=== PATIENT | male | born 1950 | race Caucasian/White ===

== ENCOUNTER → 2017-12-31 | Outpatient (CLI) | payer MEDICARE ==
--- NOTE | 2017-12-31 23:00 | CTL ---
EXAMINATION TYPE: CT Low Dose Lung DATE OF EXAM ORDERED: 12/31/2017 HISTORY: 67-year-old male personal history of tobacco use. Lung cancer screening CT DLP: 79.[address] CTDI: 2.2 mGy Automated exposure control for dose reduction was used. SCREENING VISIT: Baseline COMPARISON: None TECHNIQUE: Low dose computed tomography scan was performed through the chest at 1 mm thick sections a nd reconstructed images in the coronal/sagittal plane at [address] DIAGNOSTIC QUALITY: Satisfactory FINDINGS: Heart is normal size without pericardial effusion. Coronary vessel calcifications are present in the remarkable for coronary artery disease. Mild aneurysm ascending aorta 4.1 cm. There is conventional arterial vessel branching anatomy. Scattered nonenlarged mediastinal lymph nodes. Some are borderline in size which is in the AP window measuring 1 cm. There is moderate centrilobular emphysema in the upper to mid lung with some strandy atelectasis in t he right middle lobe. No consolidation or pleural effusion. Right apical pleural-parenchymal scarring . - No suspicious pulmonary nodule or mass. Visualized upper abdomen shows no gross abnormality. Bones: Anterior endplate spondylosis mid to lower thoracic spine. IMPRESSION: 1. LungRADS 1 - negative; no suspicious pulmonary nodule or mass. 2. COPD with moderate emphysema. 3. Mild aneurysm ascending aorta (4.1 cm). RECOMMENDATION: 1. Continue annual LDCT lung cancer screening. 2. Smoking cessation. 3. Appropriate follow-up for the patient's mild ascending aortic aneurysm. FOLLOW UP CT CHEST RECOMMENDATION: [address] LUNG RAD: Lung-Rad 1 Negative
== END | disposition home or self-care (01) ==
LOC: RADCTMAIN 16:26
PROVIDERS: ATTEND Family Medicine
DX: Z12.2 Encounter for screening for malignant neoplasm of respiratory organs (principal); J43.9 Emphysema, unspecified; I71.9 Aortic aneurysm of unspecified site, without rupture; Z87.891 Personal history of nicotine dependence

== ENCOUNTER 2018-01-21 08:32 | Day surgery (SDC) | payer MEDICARE ==
[2018-01-17 12:15] VITALS: BMI 28.1
[~2018-01-21 08:32] MED LIST: LACTATED RINGERS 1,000 ML IV SCH; LIDOCAINE 1% 20 ML VIAL (10MG/ML) FOR IV START INTRADERMA PRN; MIDAZOLAM 2 MG/2 ML VIAL IV PRN
[2018-01-21 08:51] VITALS: RESP 16; TEMP 97.9
[2018-01-21] MEDS ORDERED: PROPOFOL 10 MG/ML 20 ML VIAL IV ONE (09:15)
--- NOTE | 2018-01-21 09:45 | P.PCN ---
Date of Procedure: 01/21/18 Procedure(s) Performed: Procedure: Colonoscopy and polypectomy. Preoperative diagnosis: Screening for neoplasia. Postoperative diagnosis: 1. Diverticulosis with no evidence of acute diverticulitis or strictures. 2. Sigmoid and rectal polyps snared but no large polyps or cancer. Preparation: HalfLytely prep. Sedation: Was provided by anesthesia. Brief clinical history: The patient is a 67-year-old male who is scheduled for this evaluation for screening for neoplasia age being his risk factor. No family history of colon cancer. His prior exam was around age 51. The patient has no abdominal complaints, bleeding or anemia. Procedure: With the patient on his left lateral decubitus position and after informed consent and adequate sedation, the perianal area was inspected and it did not show any fissures or fistulas. He were no masses felt on digital rectal examination. The Olympus CFQ 160L video colonoscope was then inserted in the rectum in the usual fashion and advanced to the cecum. There were multiple diverticular orifices seen scattered along the length of the bowel including the right colon and around the hepatic flexure but there was no evidence of acute diverticulitis or strictures. In the distal sigmoid there were 2 polyps measuring between 1 and 2 cm each which were snared and retrieved by suction and there was another 1.5 cm polyp in the rectum which was snared and retrieved by suction but there were no large polyps or cancer. I retroflexed the endoscope in the rectum before the endoscope was withdrawn. The patient tolerated the procedure well. Plan: The patient was reassured. Discussed dietary measures. I recommended repeat exam in 3-5 years. He will follow up with you as planned.
[2018-01-21 10:15] VITALS: BP 111/81; PULSE 54
== END 2018-01-21 10:31 | disposition home or self-care (01) ==
LOC: ORWHC2ENDO 08:32
DX: Z12.11 Encounter for screening for malignant neoplasm of colon (principal); K63.5 Polyp of colon; D12.8 Benign neoplasm of rectum; K57.30 Diverticulosis of large intestine without perforation or abscess without bleeding; J44.9 Chronic obstructive pulmonary disease, unspecified; G47.33 Obstructive sleep apnea (adult) (pediatric); E78.5 Hyperlipidemia, unspecified; I25.10 Atherosclerotic heart disease of native coronary artery without angina pectoris; I25.2 Old myocardial infarction; Z95.5 Presence of coronary angioplasty implant and graft
CPT/HCPCS: 45385; J2704; 88305

== ENCOUNTER → 2018-06-27 | Outpatient (CLI) | payer MEDICARE ==
--- NOTE | 2018-06-27 15:55 | CT ---
EXAMINATION TYPE: CT abdomen pelvis w con DATE OF EXAM: 06/27/2018 COMPARISON: None HISTORY: Left lower quadrant abdominal pain. CT DLP: 914.2 mGycm CONTRAST: CT scan of the abdomen and pelvis is performed with Oral Contrast and with IV Contrast, patient injec freddie with 100ml mL of Isovue 300. FINDINGS: LUNG BASES-: No visible nodule. No infiltrate. LIVER/GB: No calcified gallstones. No space occupying hepatic lesion. Biliary tree is of normal ca liber. PANCREAS: No inflammation. No distinct mass. SPLEEN: No splenic enlargement. No lesion seen. ADRENALS: No nodule. No thickening. KIDNEYS/BLADDER: No hydronephrosis. No nephrolithiasis. No distinct renal mass. Urinary bladder g rossly unremarkable. BOWEL: Extensive wall thickening with pericolonic inflammatory change and fluid at the descending col onic/sigmoid colonic junction extending into the proximal sigmoid colon. Inflamed diverticula noted. Findings are compatible with acute diverticulitis without abscess formation or perforation at this ti me. Remaining small and large bowel are of normal caliber. GENITAL ORGANS: No gross abnormality. LYMPH NODES: No greater than 1cm abdominal or pelvic lymph nodes are appreciated. AORTA: No significant abnormality. OSSEOUS STRUCTURES: No significant abnormality is seen. OTHER: No significant additional abnormality is seen. IMPRESSION: 1. Acute diverticulitis without evidence for perforation or abscess at this time involving the descen ding colonic/sigmoid colonic junction and proximal sigmoid colon.
== END | disposition home or self-care (01) ==
LOC: RADCTMAIN 13:39
PROVIDERS: ATTEND Family Medicine
DX: K57.92 Diverticulitis of intestine, part unspecified, without perforation or abscess without bleeding (principal)
CPT/HCPCS: 82565; 84520; 74177; 36415; Q9967

== ENCOUNTER → 2018-12-31 | Outpatient (CLI) | payer MEDICARE ==
--- NOTE | 2018-12-31 12:32 | CTL ---
EXAMINATION TYPE: CT Low Dose Lung DATE OF EXAM ORDERED: 12/31/2018 COMPARISON: 12/31/2017 HISTORY: . Low Dose CT Lung Screening CT DLP: 103.[address] CTDI: 2.8 mGy IV CONTRAST USED: None. SCREENING VISIT: First visit COMPARISON: None. TECHNIQUE: Low dose computed tomography scan was performed through the chest at 1 millimeter thick se ctions and reconstructed images in the coronal plane at [address] DIAGNOSTIC QUALITY: Satisfactory FINDINGS: LUNG NODULES: Not presentLeft lung: no nodules identified.Right lung: no nodules identified. LUNGS: COPD: Severity: Moderate Fibrosis: Severity:None Lymph nodes: None Other findings: None RIGHT PLEURAL SPACE: Effusion: None Calcification: None Thickening: None Pneumothorax: None LEFT PLEURAL SPACE: Effusion: None Calcification: None Thickening: None Pneumothorax: None HEART: Heart Size: Mildly enlarged Coronary calcification: Mild Pericardial effusion: None Stable mild ascending aortic aneurysm at 4.1 cm versus 4.1 cm previously. OTHER FINDINGS: Upper abdomen: No significant abnormality Bony thorax: Degenerative changes Supraclavicular region: No significant abnormalityOther: No significant abnormalityI IMPRESSION: 1. No evidence for pulmonary nodule. 2. Mild ascending thoracic aortic aneurysm is stable. FOLLOW UP CT CHEST RECOMMENDATION: Follow-up screening in one year. Smoking cessation recommended.. CT LUNG RAD: LUNG RAD CATEGORY 1 negative
== END | disposition home or self-care (01) ==
LOC: RADCTMAIN 08:08
PROVIDERS: ATTEND Family Medicine
DX: Z12.2 Encounter for screening for malignant neoplasm of respiratory organs (principal); F17.210 Nicotine dependence, cigarettes, uncomplicated

== ENCOUNTER → 2019-12-28 | Outpatient (CLI) | payer MEDICARE ==
[2019-12-28 13:15] LABS: African American GFR (CKD) >90 (>60 ml/min/1.73 sqM); Blood Urea Nitrogen 19 mg/dL (9-20); Non-African American GFR(CKD) 81 (>60 ml/min/1.73 sqM)
--- NOTE | 2019-12-28 15:22 | CT ---
EXAMINATION TYPE: CT angio abd aorta w/Runoff DATE OF EXAM: 12/28/2019 COMPARISON: CT abdomen and pelvis 06/27/2018 HISTORY: 69-year-old male AAA TECHNIQUE: Contiguous axial scanning of the abdomen and pelvis with bilateral lower extremity runoff performed with IV Contrast, patient injected with 125 mL of Isovue 370. Coronal/sagittal MIP reconstr uctions performed. 3-D reconstructions generated on a dedicated independent workstation. CT DLP: 1808 mGycm Automated exposure control for dose reduction was used. FINDINGS: Heart normal size without pericardial effusion. RCA coronary artery calcifications are present. Mild LAD calcifications. Moderate centrilobular emphysema. No consolidation or pleural effusion within the visualized lungs. Tiny hiatal hernia. No focal liver lesion allowing for arterial phase imaging. No biliary ductal dilatation. Gallbladder, adrenal glands, right kidney, spleen, and pancreas appear within normal limits. Cortical hypodensities within the left kidney measuring up to 1.2 cm appear unchanged from 06/27/2018 suggesting cortical cysts. No dilated small bowel, free fluid, or free air. No mesenteric or retroperitoneal lymphadenopathy. No rmal appendix. Mild stool burden. Left-sided colonic diverticulosis, most extensive within the sigmoi d colon. There is some circumferential thickening throughout the sigmoid colon and rectum probably re lating to chronic diverticulitis. No mesenteric or retroperitoneal lymphadenopathy. Mild circumferential bladder wall thickening probably chronic bladder wall hypertrophy given mild pro statomegaly of 4.6 cm. No abnormal fluid collection the pelvis or pelvic lymphadenopathy. Bones: Mild degenerative changes at the hips. Facet arthropathy lower lumbar spine. Stable sclerotic focus left sacroiliac ingesting a bone island. DISH within the lower thoracic spine. VASCULATURE: Aortic root measured ectatic at 3.5 cm. Ascending thoracic aorta ectatic at 3.8 cm. Conventional arch vessel branching anatomy. Descending thoracic aorta is normal caliber. The celiac axis, SMA, bilateral hare renal arteries, and DARRYL are patent. Mild atherosclerotic calcifications infrarenal abdominal aorta and iliac arteries. No abdominal aortic aneurysm. RIGHT: Mild atherosclerotic change within the common iliac artery. [employer], SFA, and profunda femoral artery are patent. Popliteal artery and trifurcation are patent. Peroneal artery becomes diminutive at the distal leg. Anterior tibial artery becomes diminutive at the middle third leg and is not clearly seen beyond the ankle, likely due to the timing of the scan. Satisfactory runoff via the posterior tibial artery. LEFT: Mild atherosclerotic calcifications, iliac artery. Mild atherosclerotic calcification [employer]. SFA and profunda femoral artery are patent. Popliteal artery is patent as is the trifurcation. Peroneal and anterior tibial arteries become diminutive at the distal leg. Anterior tibial artery not clearly seen beyond the hindfoot. Peroneal artery seen to just beyond the ankle. Satisfactory runoff via the posterior tibial artery. IMPRESSION: 1. NO ABDOMINAL AORTIC ANEURYSM OR POPLITEAL ARTERY ANEURYSM. NO SIGNIFICANT ARTERIAL STENOSIS IDENTI FIED. 2. ECTASIA OF THE ASCENDING AORTA AT 3.8 CM INCIDENTALLY NOTED. 3. SATISFACTORY RUNOFF VIA THE POSTERIOR TIBIAL ARTERIES. THE ANTERIOR TIBIAL AND PERONEAL ARTERIES B ECOME DIMINUTIVE AT THE DISTAL LEGS LIKELY DUE TO SCAN TIMING RATHER THAN LACK OF PERFUSION TO THE DI STAL LOWER EXTREMITIES. 4. COPD AND TINY HIATAL HERNIA. 5. THERE IS LEFT-SIDED DIVERTICULOSIS, EXTENSIVE IN THE SIGMOID COLON. SOME CIRCUMFERENTIAL WALL THIC KENING OF THE SIGMOID COLON AND RECTUM PROBABLY RELATED TO CHRONIC DIVERTICULITIS. DIRECT VISUALIZATI ON RECOMMENDED IF ROUTINE SCREENING COLONOSCOPY IS NOT BEING PERFORMED.
== END | disposition home or self-care (01) ==
LOC: RADCTMAIN 12:37
PROVIDERS: ATTEND Internal Medicine Interventional Cardiology
DX: J44.9 Chronic obstructive pulmonary disease, unspecified (principal); I71.4 Abdominal aortic aneurysm, without rupture; K57.30 Diverticulosis of large intestine without perforation or abscess without bleeding; K44.9 Diaphragmatic hernia without obstruction or gangrene; K63.89 Other specified diseases of intestine
CPT/HCPCS: 82565; 84520; 75635; 36415; Q9967

== ENCOUNTER 2021-03-22 13:58 | Emergency (ER) | payer MEDICARE ==
[2021-03-22 16:08] LABS: Basophils # (A) 0.2 k/uL (0-0.2); Basophils % (A) 2 %; Eosinophils # (A) 0.3 k/uL (0-0.7); Eosinophils % (A) 3 %; HCT 42.5 % (39.0-53.0); HGB 14.5 gm/dL (13.0-17.5); Lymphocytes # (A) 2.7 k/uL (1.0-4.8); Lymphocytes % (A) 31 %; MCH 31.9 pg (25.0-35.0); MCHC 34.1 g/dL (31.0-37.0); MCV 93.5 fL (80.0-100.0); Mean Platelet Volume 8.3; Monocytes # (A) 0.4 k/uL (0-1.0); Monocytes % (A) 5 %; Neutrophils % (A) 58 %; Platelet Count 214 k/uL (150-450); RBC 4.54 m/uL (4.30-5.90); WBC 8.7 k/uL (3.8-10.6)
[2021-03-22 16:17] LABS: ALT 20 U/L (4-49); AST 24 U/L (17-59); African American GFR (CKD) >90 (>60 ml/min/1.73 sqM); Albumin 4.6 g/dL (3.5-5.0); Alkaline Phosphatase 103 U/L (38-126); Anion Gap 10 mmol/L; Blood Urea Nitrogen 14 mg/dL (9-20); Calcium 9.7 mg/dL (8.4-10.2); Carbon Dioxide 25 mmol/L (22-30); Chloride 104 mmol/L (98-107); Glucose 118 mg/dL (74-99); Non-African American GFR(CKD) 89 (>60 ml/min/1.73 sqM); Sodium 139 mmol/L (137-145); Total Bilirubin 0.9 mg/dL (0.2-1.3); Total Protein 7.3 g/dL (6.3-8.2)
[2021-03-22 16:19] LABS: Partial Thromboplastin Time 24.9 sec (22.0-30.0); Prothrombin Time 10.4 sec (9.0-12.0)
--- NOTE | 2021-03-22 18:15 | ED ---
General Adult HPI - General Chief complaint: Recheck/Abnormal Lab/Rx Stated complaint: R arm numbness Time Seen by Provider: 03/22/21 17:50 Source: patient, RN notes reviewed, old records reviewed Mode of arrival: ambulatory Limitations: no limitations - History of Present Illness Initial comments: This is a 70-year-old male who presents emergency Department having a little bit of tingling in his right hand. Patient states he thinks it started after he carried for greater from upstairs ounces with his friend and today it was ongoing for about an hour and then resolved he has no other symptoms. Patient denies chest pain difficulty breathing first breath. Patient denies any diaphoretic episodes and patient education recent fever chills or cough per patient's any neck pain or neck injury recently. Patient states the main reason he came to the hospital because his made him because he had a heart attack a few years back and she became worried. Patient states she's currently at his baseline and has no complaints. - Related Data Home Medications Medication Instructions Recorded Confirmed Aspirin [Adult Low Dose Aspirin EC] 81 mg PO HS 01/17/18 01/17/18 Atorvastatin [Lipitor] 40 mg PO HS 01/17/18 01/17/18 Losartan [Cozaar] 12.5 mg PO HS 01/17/18 01/17/18 Prevagen 1 cap PO DAILY 01/17/18 01/21/18 Allergies Allergy/AdvReac Type Severity Reaction Status Date / Time No Known Allergies Allergy Verified 03/22/21 15:19 Review of Systems ROS Statement: Those systems with pertinent positive or pertinent negative responses have been documented in the HPI. ROS Other: All systems not noted in ROS Statement are negative. Past Medical History Past Medical History: Coronary Artery Disease (CAD), COPD, Hyperlipidemia, Myocardial Infarction ([place]), Skin Disorder, Sleep Apnea/CPAP/BIPAP Additional Past Medical History / Comment(s): PRE-CA FACE LESIONS. NO TX FOR SLEEP APNEA, BORDERLINE. Last Myocardial Infarction Date:: 09/2013 History of Any Multi-Drug Resistant Organisms: None Reported Past Surgical History: Heart Catheterization With Stent Additional Past Surgical History / Comment(s): PTCA W/ STENTS X2. COLONOSCOPY. Past Anesthesia/Blood Transfusion Reactions: No Reported Reaction Date of Last Stent Placement:: 09/2013 Past Psychological History: No Psychological Hx Reported Smoking Status: Never smoker Past Alcohol Use History: Occasional Past Drug Use History: None Reported - Past Family History Mother Family Medical History: No Reported History General Exam - General Exam Comments Initial Comments: GENERAL: Patient is well-developed and well-nourished. Patient is nontoxic and well- hydrated and is in no acute distress. ENT: Neck is soft and supple. No significant lymphadenopathy is noted. Oropharynx is clear. Moist mucous membranes. Neck has full range of motion without eliciting any pain. EYES: The sclera were anicteric and conjunctiva were pink and moist. Extraocular movements were intact and pupils were equal round and reactive to light. Eyelids were unremarkable. PULMONARY: Unlabored respirations. Good breath sounds bilaterally. No audible rales rhonchi or wheezing was noted. CARDIOVASCULAR: There is a regular rate and rhythm without any murmurs gallops or rubs. ABDOMEN: Soft and nontender with normal bowel sounds. SKIN: Skin is clear with no lesions or rashes and otherwise unremarkable. NEUROLOGIC: Patient is alert and oriented x3. Cranial nerves II through XII are grossly intact. Motor and sensory are also intact. Normal speech, volume and content. Symmetrical smile. MUSCULOSKELETAL: Normal extremities with adequate strength and full range of motion. LYMPHATICS: No significant lymphadenopathy is noted PSYCHIATRIC: Normal psychiatric evaluation. Limitations: no limitations Course Vital Signs 03/22/21 03/22/21 15:19 18:23 Temperature 97.8 F 98.0 F Pulse Rate 51 L 60 Respiratory 20 18 Rate Blood Pressure 123/78 124/76 O2 Sat by Pulse 98 98 Oximetry Medical Decision Making - Medical Decision Making EKG shows sinus bradycardia at 49 bpm VA interval is 172 QRS is 98 QT interval 434 QTC is 392. Patient's EKG showselevation or depression. Patient states he is always had a very slow heartbeat. - Lab Data Result diagrams: 03/22/21 15:58 03/22/21 15:58 Lab Results 03/22/21 03/22/21 03/22/21 Range/Units 15:58 15:58 15:58 WBC 8.7 (3.8-10.6) k/uL RBC 4.54 (4.30-5.90) m/uL Hgb 14.5 (13.0-17.5) gm/dL Hct 42.5 (39.0-53.0) % MCV 93.5 (80.0-100.0) fL MCH 31.9 (25.0-35.0) pg MCHC 34.1 (31.0-37.0) g/dL RDW 12.0 (11.5-15.5) % Plt Count 214 (150-450) k/uL MPV 8.3 Neutrophils % 58 % Lymphocytes % 31 % Monocytes % 5 % Eosinophils % 3 % Basophils % 2 % Neutrophils # 5.0 (1.3-7.7) k/uL Lymphocytes # 2.7 (1.0-4.8) k/uL Monocytes # 0.4 (0-1.0) k/uL Eosinophils # 0.3 (0-0.7) k/uL Basophils # 0.2 (0-0.2) k/uL PT 10.4 (9.0-12.0) sec INR 1.0 (<1.2) APTT 24.9 (22.0-30.0) sec Sodium 139 (137-145) mmol/L Potassium 4.0 (3.5-5.1) mmol/L Chloride 104 (98-107) mmol/L Carbon Dioxide 25 (22-30) mmol/L Anion Gap 10 mmol/L BUN 14 (9-20) mg/dL Creatinine 0.86 (0.66-1.25) mg/dL Est GFR (CKD-EPI)AfAm >90 (>60 ml/min/1.73 sqM) Est GFR (CKD-EPI)NonAf 89 (>60 ml/min/1.73 sqM) Glucose 118 H (74-99) mg/dL Calcium 9.7 (8.4-10.2) mg/dL Total Bilirubin 0.9 (0.2-1.3) mg/dL AST 24 (17-59) U/L ALT 20 (4-49) U/L Alkaline Phosphatase 103 (38-126) U/L Troponin I (0.000-0.034) ng/mL Total Protein 7.3 (6.3-8.2) g/dL Albumin 4.6 (3.5-5.0) g/dL 03/22/21 Range/Units 15:58 WBC (3.8-10.6) k/uL RBC (4.30-5.90) m/uL Hgb (13.0-17.5) gm/dL Hct (39.0-53.0) % MCV (80.0-100.0) fL MCH (25.0-35.0) pg MCHC (31.0-37.0) g/dL RDW (11.5-15.5) % Plt Count (150-450) k/uL MPV Neutrophils % % Lymphocytes % % Monocytes % % Eosinophils % % Basophils % % Neutrophils # (1.3-7.7) k/uL Lymphocytes # (1.0-4.8) k/uL Monocytes # (0-1.0) k/uL Eosinophils # (0-0.7) k/uL Basophils # (0-0.2) k/uL PT (9.0-12.0) sec INR (<1.2) APTT (22.0-30.0) sec Sodium (137-145) mmol/L Potassium (3.5-5.1) mmol/L Chloride (98-107) mmol/L Carbon Dioxide (22-30) mmol/L Anion Gap mmol/L BUN (9-20) mg/dL Creatinine (0.66-1.25) mg/dL Est GFR (CKD-EPI)AfAm (>60 ml/min/1.73 sqM) Est GFR (CKD-EPI)NonAf (>60 ml/min/1.73 sqM) Glucose (74-99) mg/dL Calcium (8.4-10.2) mg/dL Total Bilirubin (0.2-1.3) mg/dL AST (17-59) U/L ALT (4-49) U/L Alkaline Phosphatase (38-126) U/L Troponin I <0.012 (0.000-0.034) ng/mL Total Protein (6.3-8.2) g/dL Albumin (3.5-5.0) g/dL Disposition Clinical Impression: Paresthesias in right hand Disposition: HOME SELF-CARE Condition: Good Instructions (If sedation given, give patient instructions): Paresthesia (ED) Is patient prescribed a controlled substance at d/c from ED?: No Referrals: Ambar Walker III, MD [Primary Care Provider] - 1-2 days Time of Disposition: 18:13
[2021-03-22 18:30] VITALS: BP 124/76; PULSE 60; RESP 18; TEMP 98
== END 2021-03-22 18:23 | disposition home or self-care (01) ==
LOC: EC 13:58
DX: R20.2 Paresthesia of skin (principal); R20.0 Anesthesia of skin; J44.9 Chronic obstructive pulmonary disease, unspecified; E78.5 Hyperlipidemia, unspecified; I25.2 Old myocardial infarction; I25.10 Atherosclerotic heart disease of native coronary artery without angina pectoris; G47.30 Sleep apnea, unspecified; Z79.82 Long term (current) use of aspirin
CPT/HCPCS: 36415; 80053; 84484; 85025; 85610; 85730; 93005; 99284

== ENCOUNTER 2022-04-03 06:56 | Day surgery (SDC) | payer MEDICARE ==
[2022-04-02 10:47] VITALS: BMI 29.7
[~2022-04-03 06:56] MED LIST changes: +LIDOCAINE 1% (10MG/ML) FOR IV START INTRADERMA PRN; -LIDOCAINE 1% 20 ML VIAL (10MG/ML) FOR IV START INTRADERMA PRN; -MIDAZOLAM 2 MG/2 ML VIAL IV PRN
[2022-04-03 07:30] VITALS: RESP 16; TEMP 97
[2022-04-03] MEDS ORDERED: PROPOFOL 10 MG/ML 20 ML VIAL IV ONE (08:20)
--- NOTE | 2022-04-03 08:46 | P.PCN ---
Date of Procedure: 04/03/22 Procedure(s) Performed: BRIEF HISTORY: Patient is a 71-year-old pleasant white male scheduled for an elective colonoscopy as a part of evaluation of intermittent rectal bleeding. PROCEDURE PERFORMED: Colonoscopy snare polypectomy. PREOPERATIVE DIAGNOSIS: Intermittent rectal bleeding. IV sedation per Anesthesia. PROCEDURE: After informed consent was obtained, the patient, was brought into the endoscopy unit. IV sedation was administered by Anesthesia under continuous monitoring. Digital rectal examination was normal. Initially the Olympus CF-160 flexible video colonoscope was then inserted in the rectum, gradually advanced into the cecum without any difficulty. Careful examination was performed as the scope was gradually being withdrawn. Ileocecal valve and the appendiceal orifice were visualized and appeared normal. Prep was excellent. Mucosa of the cecum had a 5 mm polyp that was removed by snare polypectomy. Rest of the ascending colon, transverse colon, descending colon, sigmoid colon, and rectum appeared normal. Scattered sigmoid diverticulosis. Retroflexion was performed in the rectum and small internal hemorrhoids were seen. The patient tolerated the procedure well. IMPRESSION: 5 mm cecal polyp status post polypectomy Scattered sigmoid diverticulosis and small internal hemorrhoids RECOMMENDATIONS: Findings of this examination were discussed with the patientas well as his family. He was advised to follow with the biopsy results. If the biopsy results adenoma he can have a repeat colonoscopy in 5 years. In the meantime he was advised to be a high-fiber diet and take fiber supplements a regular basis and avoid straining and constipation.].
[2022-04-03 09:23] VITALS: BP 147/74; PULSE 40
== END 2022-04-03 09:44 | disposition home or self-care (01) ==
LOC: ORWHC2ENDO 06:56
PROVIDERS: ATTEND Internal Medicine Gastroenterology
DX: D12.0 Benign neoplasm of cecum (principal); K62.5 Hemorrhage of anus and rectum; I10 Essential (primary) hypertension; G47.33 Obstructive sleep apnea (adult) (pediatric); E78.5 Hyperlipidemia, unspecified; J44.9 Chronic obstructive pulmonary disease, unspecified
CPT/HCPCS: 88305; 45385; J2704

== ENCOUNTER → 2022-04-04 | Outpatient (CLI) | payer MEDICARE ==
[2022-04-04 23:37] LABS: T4, Free (Free Thyroxine) 1.19 ng/dL (0.800-1.800)
== END | disposition home or self-care (01) ==
LOC: LABWHC1 14:23
PROVIDERS: ATTEND Internal Medicine Interventional Cardiology
DX: R00.1 Bradycardia, unspecified (principal)
CPT/HCPCS: 36415; 84439; 84443

== ENCOUNTER → 2024-06-22 | Outpatient (CLI) | payer MEDICARE ==
--- NOTE | 2024-06-23 07:37 | MR ---
EXAMINATION TYPE: MR Prostate wo/w con DATE OF EXAM: 06/22/2024 9:22 AM COMPARISON: None. CLINICAL INDICATION: Male, 73 years old with history of C61 prostate ca; PROSTATE CA - PSA 5.61 12/09/2 PSA 7.92 06/14/23 TECHNIQUE: Multi-planar, multi-sequence imaging of the pelvis is performed prior to and following the uncomplicated administration of bolus intravenous gadolinium. IV Contrast: 9ML mL Gadobutrol Interpretive Criteria: PI-RADS v2.1 SERUM PSA: PSA 5.61 12/09/2 PSA 7.92 06/14/23 SURGICAL PATHOLOGY: No data available. FINDINGS: Prostatic dimensions: 4.8 x 6.4 x 4.2 cm. Ellipsoid Volume:67.56 (PSA density=0.12 ng/mL/mL) CENTRAL GLAND (Central and Transition Zones/CZ+TZ): Multiple bilateral, heterogenous appearing hypertrophic stromal nodules, without suspicious lesion. M edian lobe hypertrophy with protrusion into the base of the bladder. (PI-RADS 2) PERIPHERAL ZONE (PZ): Limited right posterior lateral peripheral gland due to gas in the rectum. Bilateral linear, indistinct wedgelike areas of low ADC, and low T2 signal, No evidence of masslike a bnormality, or localized perfusional hypervascularity, to further suggest a focus of clinically signi ficant prostate cancer. (PI-RADS 2) SEMINAL VESICLES (SV): Symmetric and unremarkable. PERIPROSTATIC TISSUES: Unremarkable. LYMPH NODES: No enlarged pelvic lymph node. REMAINING PELVIS: Bladder wall is within normal limits given distention. No abnormal free or organized intrapelvic fluid collection. No pathologic bowel dilation or mural thickening. Colonic diverticula are present. Bilateral fat containing inguinal hernias. OSSEOUS STRUCTURES: No suspicious osseous abnormality. IMPRESSION: 1. No specific features for high-risk prostate cancer. Maximum PI-RADS score: 2. 2. Moderate BPH, estimated gland volume 67.56 mL. 3. No suspicious osseous lesion. No lymphadenopathy. No evidence of prostate adenocarcinoma involving the periprostatic tissues. [facility], , 06/23/2024 7:34 AM
== END | disposition home or self-care (01) ==
LOC: RADMRIMAIN 08:15
PROVIDERS: ATTEND Urology
DX: C61 Malignant neoplasm of prostate (principal); N40.0 Benign prostatic hyperplasia without lower urinary tract symptoms
CPT/HCPCS: 72197; A9585